=== PATIENT | male | born 1995 | race Caucasian/White ===

== ENCOUNTER 2017-08-24 16:36 | Emergency (ER) | payer OTHER ==
[2017-08-24 16:49] VITALS: BP 163/66; PULSE 50; TEMP 97.6; BMI 25.6
--- NOTE | 2017-08-24 18:25 | PDOC ---
History of Present Illness - General Chief Complaint: Sore Throat Stated Complaint: FB IN THROAT Time Seen by Provider: 08/24/17 17:35 - History of Present Illness Initial Comments: 08/24/17 18:13 CHIEF COMPLAINT: throat irritation HISTORY OF PRESENT ILLNESS: 22 yo M with no PMH presents to fast track with concerns of foreign body to throat. Patient states he ate fish two days ago "and I guess the spine or something got stuck in my throat and it hurts." He reports going to a different hospital yesterday "and they did a test where I had to lie down and have something scan my neck but they said they didn't say anything and that I should come here because you might have specialists that can help me." He denies any difficulty breathing or swallowing and denies any bleeding from throat, drooling or voice change. Denies any fever, chills, nausea , vomiting, or diarrhea. Patient is speaking in full sentences with no apparent distres or SOB. PAST MEDICAL HISTORY: Denies past medical history FAMILY HISTORY: Denies SOCIAL HISTORY: Denies tobacco, alcohol, illicit drug use. SURGICAL HISTORY: Denies ALLERGIES: No known drug allergies REVIEW OF SYSTEMS as per HPI PHYSICAL EXAM General Appearance: Well-appearing, appropriately dressed. No apparent distress. HEENT: EOMI, PERRLA, normal ENT inspection, normal voice, TMs normal, pharynx normal. No conjunctival pallor. No photophobia, scleral icterus. Neck: Supple. Trachea midline. No tenderness, rigidity, carotid bruit, stridor , lymphadenopathy, or thyromegaly. Respiratory/Chest: Lungs CTAB. No shortness of breath, chest tenderness, respiratory distress, accessory muscle use. No crackles, rales, rhonchi, stridor , wheezing, dullness Cardiovascular: RRR. S1, S2. Musculoskeletal/Extremities: Normal inspection. FROM of all extremities, normal capillary refill. Pelvis Stable. No CVA tenderness. No tenderness to extremities, pedal edema, swelling, erythema or deformity. Integumentary: Appropriate color, dry, warm. No cyanosis, erythema, jaundice or rash Neurologic: shear scrapman II-XII intact. Fully oriented, alert. Appropriate mood/affect. Motor strength 5/5. No appreciable EOM palsy, facial droop or sensory deficit. Past History - Past Medical History Allergies/Adverse Reactions: Allergies Allergy/AdvReac Type Severity Reaction Status Date / Time No Known Allergies Allergy Verified 08/24/17 16:46 Home Medications: Ambulatory Orders NK [No Known Home Medication] 08/24/17 CVA: No COPD: No DVT: No Dementia: No - Immunization History Immunization Up to Date: Yes - Suicide/Smoking/Psychosocial Hx Smoking History: Never smoked Have you smoked in the past 12 months: No Information on smoking cessation initiated: No Hx Alcohol Use: No Drug/Substance Use Hx: No Substance Use Type: None *Physical Exam - Vital Signs Last Vital Signs Temp Pulse Resp BP Pulse Ox 97.6 F 50 L 16 163/66 100 08/24/17 16:46 08/24/17 16:46 08/24/17 16:46 08/24/17 16:46 08/24/17 16:46 Medical Decision Making - Medical Decision Making 08/24/17 18:13 22 yo M with no PMH presents to fast track with concerns of foreign body to throat. After further discussion, patient reveals he has discharge information from yesterday's visit. Per d/c paperwork, patient was evaluated at [facility] and had a CT scan performed. Patient was also prescribed Augmentin for prophylaxis and told to f/u with ENT on Saturday. Patient was given referrals to two ENT doctors and given instructions to go to [facility] or [facility] if symptoms worsened. Discussed with patient he should follow up with ENT on Saturday and of signs and symptoms for return to ER. Patient verbalized understanding and agrees to plan. *DC/Admit/Observation/Transfer Diagnosis at time of Disposition: Throat irritation - Discharge Dispostion Disposition: HOME Condition at time of disposition: Stable Admit: No - Referrals Referrals: Gwyn Soni [Primary Care Provider] - - Patient Instructions Printed Discharge Instructions: Tips on Coping with Mouth, Gum, and Throat Problems Related to Radiation Th, DI for Foreign Body, Swallowed-Adult Additional Instructions: As discussed, please follow the discharge instructions given to you at [facility] and take medications as prescribed. Again, if you develop fever, swelling of the throat resulting in ANY difficulty breathing or drooling due to inability to swallow, change in mental status, please go to [facility] or [facility]. Otherwise, follow up with the ENT referrals provided on Saturday. - Post Discharge Activity
== END 2017-08-24 18:46 | disposition home or self-care (01) ==
LOC: JERFT 16:36
DX: R09.89 Other specified symptoms and signs involving the circulatory and respiratory systems (principal)
CPT/HCPCS: 99281-25